=== PATIENT | female | born 1990 | race Caucasian/White ===

== ENCOUNTER 2016-11-19 06:22 | Inpatient (IN) | payer BC, MEDICAID ==
[~2016-11-19] VITALS: Ht 170.2 cm; Wt 76.8 kg
--- NOTE | ~2016-11-19 | OR ---
PATIENT'S NAME: SIM JEREZ [facility] AGE: 26 Y [address] ROOM: [place] [address] LOCATION: [facility] ADMIT DATE: 11/19/2016 OR/Procedure Report DISCHARGE DATE: FAMILY PHYSICIAN: Santhosh Carver MD ATTENDING PHYSICIAN: Santhosh Carver SURGEON: Santhosh Carver MD SALES ACCOUNT REPRESENTATIVE: DATE OF PROCEDURE: 11/19/2016 ADDENDUM: During the delivery, was noted to have a nuchal cord which was fairly tight, was not to be reduced, but the anterior shoulder was delivered and delivered the remainder of the infant. This nuchal cord was just x1, but was fairly tight at that time. Heart tones were down into the 90s to 120s during her delivery, but never got to a dangerous level. SANTHOSH CARVER MD TAB/modl /[id number] d: 11/19/162043 t: 12/08/16 0834, OPERATIVE SUMMARY
--- NOTE | ~2016-11-19 | OR ---
PATIENT'S NAME: SIM JEREZ [facility] AGE: 26 Y [address] ROOM: [address] [place] [address] LOCATION: [facility] ADMIT DATE: 11/19/2016 OR/Procedure Report DISCHARGE DATE: FAMILY PHYSICIAN: Santhosh Carver MD ATTENDING PHYSICIAN: Santhosh Carver SURGEON: Santhosh Carver MD RESOLUTION MANAGER: DATE OF PROCEDURE: 11/19/2016 PREOPERATIVE DIAGNOSES: 1. Term intrauterine at 38 weeks and 5 days' gestation. 2. Spontaneous rupture of membranes at home with clear fluid. 3. Mild terminal meconium during labor. 4. Epidural anesthesia. 5. Gestational diabetes mellitus with diet control. 6. History of prior gestational diabetes with first . POSTOPERATIVE DIAGNOSES: 1. Term intrauterine at 38 weeks and 5 days' gestation. 2. Delivery of viable with weight currently pending with score of 8 and 9 at 1 and 5 minutes respectively. PROCEDURE PERFORMED: Minor second-degree laceration with repair. DESCRIPTION OF PROCEDURE: This is a 26-year-old, 2, para 1-0-0-1 who is at 38 weeks and 5 days' gestation with overall not so great compliant with her health care visits, had presented to Labor and Delivery with spontaneous rupture of membranes with clear fluid at home. She transferred her care for me from [place] at 26 weeks' gestation. Had not had her one-hour Glucola. Subsequently failed that and then took some time to get her 3 hour done, she was noncompliant with getting that done. When she did she definitely failed that and failed multiple times to see a breastfeeding educator. At the time of her coming in today, she states her blood sugars range in the 80s to 110s on a fasting basis and 120s 2 hours postprandial. So she does have pretty decent control. She had no other problems with her . She is an O positive, antibody screen negative, GBS negative, and rubella immune female. She initially had leakage of clear fluid at home, but did end up having some very mild meconium stained fluid during her labor. The 2nd stage of labor was fairly short at about 20 minutes. She progressed to complete without the use of any augmentation. She did this under epidural anesthesia which was placed at 4 cm. She ended up pushing for about 20 minutes to accomplish delivery. Head delivered from a straight up OA presentation. Head rotated to the maternal right and the anterior shoulder was delivered easily followed by the posterior shoulder and the remainder of the infant. Careful protection of the perineum was done during this time. The baby was placed on maternal abdomen PATIENT'S NAME: SIM JEREZ [facility] AGE: 26 Y [address] ROOM: [place] [address] LOCATION: [facility] ADMIT DATE: 11/19/2016 OR/Procedure Report DISCHARGE DATE: FAMILY PHYSICIAN: Santhosh Carver MD ATTENDING PHYSICIAN: Santhosh Carver and was bulb suctioned. The cord was doubly clamped and the intervening segment was cut by the father. score is 8 and 9 at 1 and 5 minutes respectively with a weight which is currently pending. The placenta was then delivered intact with three-vessel cord. This was carefully inspected and not missing any cotyledons. Cervix was inspected and found to be intact without focal laceration. There were no vaginal sidewall hematomas. There were no significant periurethral tears. She had a very minor second-degree laceration which was repaired in the usual manner with 3-0 Vicryl under the anesthesia provided by the epidural and she tolerated all this well. Blood loss was 200 mL. Both mom and infant doing well at this time. Both sponge counts and needle counts are correct. SANTHOSH CARVER MD TAB/modl /[id number] d: 11/19/167 t: 12/08/16 0831, OPERATIVE SUMMARY
[2016-11-19] MEDS ORDERED: PRENATAL 1+1)(P1 TAB PO (06:58)
[2016-11-19 08:17] LABS: BASOPHIL % 0.4 %; EOSINOPHIL # 0.2 K/uL (0.0-0.5); EOSINOPHIL % 1.8 %; HEMATOCRIT 37.8 % (33.0-46.0); HEMOGLOBIN 12.4 g/dL (11.0-15.0); IMMATURE GRANULOCYTE # 0.1 K/uL (0.0-0.3); IMMATURE GRANULOCYTE % 0.5 %; LYMPHOCYTE # 3.2 K/uL (0.8-4.0); LYMPHOCYTE % 32.4 %; MCH 26.6 pg (27.0-34.0); MCHC 32.8 gm/dL (32.0-36.5); MCV 81.1 fl (83.0-98.0); MONOCYTE # 0.7 K/uL (0.0-1.0); MONOCYTE % 6.6 %; MPV 9.6 fl (9.4-12.4); NEUTROPHIL # (ANC) 5.7 K/uL (1.8-7.8); NEUTROPHIL % 58.3 %; NRBC % 0 /100WBC (0-0.00); PLATELET COUNT 258 K/uL (150-450); RBC 4.66 M/uL (3.50-5.00); RDW-CV 14.7 % (11.9-14.6); WBC 9.9 K/uL (4.0-11.0)
[2016-11-19 16:09] LABS: PCO2 55 mmHg (35-45)
[2016-11-19 16:10] LABS: BICARBONATE 22.7 mmol/L (18.0-23.0); PO2 15 mmHg (80-90)
--- NOTE | 2016-11-20 04:59 | NUR ---
Last VS: T:97.6 P:73 R: 12 BP: 128/78 Pain ratin. Last pain med: Percocet Medicated at: 0434 Effective: Yes Breasts: soft Nipples: intact Fundus: firm, midline, even Lochia: small, rubra Epis/Perineum: 2nd degree Voiding well: voids on own WNL Significant event: VSS, ACCU checks QID, diet controlled gestational diabetic, needs paternity and cert in. Motrin given at 0042.
[2016-11-20 05:22] LABS: BASOPHIL # 0.1 K/uL (0.0-0.2); BASOPHIL % 0.4 %; EOSINOPHIL # 0.1 K/uL (0.0-0.5); EOSINOPHIL % 0.8 %; HEMATOCRIT 31.4 % (33.0-46.0); HEMOGLOBIN 10.3 g/dL (11.0-15.0); IMMATURE GRANULOCYTE # 0.1 K/uL (0.0-0.3); IMMATURE GRANULOCYTE % 0.4 %; LYMPHOCYTE # 3.7 K/uL (0.8-4.0); MCHC 32.8 gm/dL (32.0-36.5); MCV 82.2 fl (83.0-98.0); MONOCYTE # 0.8 K/uL (0.0-1.0); MONOCYTE % 6.2 %; MPV 9.3 fl (9.4-12.4); NEUTROPHIL % 63.2 %; NRBC % 0 /100WBC (0-0.00); PLATELET COUNT 208 K/uL (150-450); RBC 3.82 M/uL (3.50-5.00); RDW-CV 14.7 % (11.9-14.6); WBC 12.7 K/uL (4.0-11.0)
--- NOTE | 2016-11-20 17:27 | NUR ---
UP AD JERRI. PLANS HOME THIS PM. NOT VERY CONFIDENT W/ BUT BETTER PLAN CIRC THEN HOME
[2016-11-20] MEDS ORDERED: MOTRIN800 MG PO (21:15)
[2016-11-20] MEDS ORDERED: LANSINOH7 GM TOP (21:16)
[2016-11-20] MEDS ORDERED: PERCOCET 5-3251 EACH PO (21:16)
== END 2016-11-20 22:00 | disposition disaster alternative care site (69) | DRG 775 ==
LOC: GOBS 06:22 → EDSTATUS 11-28 05:46 → G2NOB 11-28 05:47 → GOBM 11-28 12:01
PROVIDERS: Family Medicine; ADMIT Family Medicine
PROC: 10E0XZZ Delivery of Products of Conception, External Approach (ICD-10-PCS; principal; 2016-11-19)
PROC: 0KQM0ZZ Repair Perineum Muscle, Open Approach (ICD-10-PCS; principal; 2016-11-19)
DX: O24.420 Gestational diabetes mellitus in childbirth, diet controlled (principal); O77.0 Labor and delivery complicated by meconium in amniotic fluid; O70.1 Second degree perineal laceration during delivery; O69.1XX0 Labor and delivery complicated by cord around neck, with compression, not applicable or unspecified; Z3A.38 38 weeks gestation of pregnancy; Z37.0 Single live birth; Z91.19 Patient's noncompliance with other medical treatment and regimen
CPT/HCPCS: J2590; J3010; J7120